=== PATIENT | male | born 1945 | race Caucasian/White ===

== ENCOUNTER 2017-06-08 07:59 | Outpatient (CLI) | payer MEDICARE, OTHER ==
[2017-06-08] VITALS (14 sets, daily range): BP systolic 114–162; BP diastolic 77–106; PULSE 44–53; TEMP 97.7
[~2017-06-08] VITALS: Ht 162.6 cm; Wt 57.7 kg
[2017-06-08] MEDS ORDERED: PRILOSEC 20MG20 MG PO (08:39)
[2017-06-08] MEDS ORDERED: ASPIRIN 81M81 MG/TA2 PO (08:40)
[2017-06-08] MEDS ORDERED: PLAVIX 75MG TAB75 MG PO (08:40)
[2017-06-08] MEDS ORDERED: FLOMAX 0.40.4 MG/CAP PO (08:44)
== END 2017-06-08 11:28 | disposition home or self-care (01) ==
LOC: COL.RAD 07:59
DX: I34.0 Nonrheumatic mitral (valve) insufficiency (principal); I77.810 Thoracic aortic ectasia; I63.443 Cerebral infarction due to embolism of bilateral cerebellar arteries
CPT/HCPCS: J2250; J3010

== ENCOUNTER 2017-07-13 11:53 | Day surgery (SDC) | payer MEDICARE, OTHER ==
[~2017-07-13] VITALS: Ht 162.6 cm; Wt 56.8 kg
[~2017-07-13 11:53] MED LIST: ASPIRIN 81M81 MG/TA2 PO; FLOMAX 0.40.4 MG/CAP PO; PLAVIX 75MG TAB75 MG PO; PRILOSEC 20MG20 MG PO
[2017-07-13 12:28] LABS: HEMATOCRIT 41.2 % (42.0-52.0); HEMOGLOBIN 13.1 g/dl (13.5-18.0); MEAN CELL VOLUME 86 fl (80.0-100.0); MEAN CORPUSCULAR HEMOGLOBIN 28 pg (27.0-31.0); MEAN CORPUSCULAR HGB CONC 32 g/dl (33.0-37.0); MEAN PLATELET VOLUME 9.6 fl (7.4-10.4); PLATELET COUNT 209 K/mm3 (130-400); RED BLOOD COUNT 4.77 M/mm3 (4.20-5.60); REDCELL DISTRIBUTION WIDTH-CV 17.2 % (11.5-14.5); WHITE BLOOD COUNT 4.4 K/mm3 (4.8-10.8)
[2017-07-13 12:33] LABS: INR 3.1 (0.8-3.0); PROTHROMBIN TIME 36.2 SECONDS (9.7-12.8)
[2017-07-13 12:48] LABS: CALCIUM 9.1 mg/dL (8.4-10.2); CREATININE, serum 0.92 mg/dL (0.66-1.25); POTASSIUM 4.2 mmol/L (3.4-5.0)
[2017-07-13 12:49] VITALS: BP 123/81; PULSE 48; TEMP 98.1
[2017-07-13] MEDS ORDERED: PROTONIX 40MG T40 MG PO (12:53)
[2017-07-13] MEDS ORDERED: BENADRYL25 M2 PO (12:54)
[2017-07-13] MEDS ORDERED: COUMADIN 5MG5 MG/TAB PO (12:54)
[2017-07-13] MEDS ORDERED: ZESTRIL2.5 MG PO (12:54)
== END 2017-07-13 14:55 | disposition home or self-care (01) ==
LOC: COL.CAR 11:53
PROVIDERS: Internal Medicine Interventional Cardiology
DX: I48.91 Unspecified atrial fibrillation (principal); I63.443 Cerebral infarction due to embolism of bilateral cerebellar arteries; I10 Essential (primary) hypertension; Q21.1 Atrial septal defect; I77.810 Thoracic aortic ectasia; M19.90 Unspecified osteoarthritis, unspecified site; K21.9 Gastro-esophageal reflux disease without esophagitis; Z79.01 Long term (current) use of anticoagulants; Z80.9 Family history of malignant neoplasm, unspecified; Z82.3 Family history of stroke
CPT/HCPCS: C1764

== ENCOUNTER 2020-03-29 19:30 | Observation (INO) | payer MEDICARE, OTHER ==
[~2020-03-29] VITALS: Ht 162.6 cm; Wt 56.8 kg
[~2020-03-29 19:30] MED LIST changes: +BENADRYL25 M2 PO; +COUMADIN 5MG5 MG/TAB PO; +PROTONIX 40MG T40 MG PO; +ZESTRIL2.5 MG PO
[2020-03-29] MEDS ORDERED: DILT PO (20:14)
[2020-03-29 20:51] LABS: HEMATOCRIT 46.2 % (42.0-52.0); HEMOGLOBIN 15.3 g/dl (13.5-18.0); MEAN CELL VOLUME 96 fl (80.0-100.0); MEAN CORPUSCULAR HEMOGLOBIN 32 pg (27.0-31.0); MEAN CORPUSCULAR HGB CONC 33 g/dl (33.0-37.0); MEAN PLATELET VOLUME 9.1 fl (7.4-10.4); PLATELET COUNT 232 K/mm3 (130-400); REDCELL DISTRIBUTION WIDTH-CV 12.4 % (11.5-14.5)
[2020-03-29 21:15] LABS: ALBUMIN 3.7 gm/dL (3.5-5.0); BILIRUBIN,TOTAL 0.5 mg/dL (0.0-1.0); CALCIUM 9.1 mg/dL (8.4-10.2); CREATININE, serum 0.88 (0.66-1.25); TOTAL PROTEIN 7.3 gm/dL (6.4-8.2)
[2020-03-29 21:38] LABS: BAND 9 % (0-10); LYMPHOCYTE 5 % (20.0-51.0); NEUTROPHILS 82 % (42.0-75.2)
[2020-03-29 21:39] LABS: PLATELET ESTIMATE NORMAL (NORMAL)
[2020-03-29 22:55] VITALS: BP 134/85; PULSE 62; TEMP 99.2
[2020-03-30 03:46] VITALS: BP 130/84; PULSE 61; TEMP 98.1
--- NOTE | 2020-03-30 04:13 | NUR ---
Patient to the floor at about 2230. Ambulates to the bathroom with unsteady gait. Complains of pain to left shoulder. PRN pain medication administered and effective. Patient has slept well throughout the night. IVF continue to RAC. Continues to be alert and oriented. No confusion noted. Uses call light appropriately. Skin tear noted to back of left elbow. Steristrip applied and optifoam covering site. Patient denies any further needs. Will continue to monitor.
[2020-03-30 06:12] LABS: BASO % 0.1 % (0.0-2.0); EOS % 0.1 % (0-4.0); GRAN # 6.7 (1.4-6.5); GRAN % 80.7 % (42.2-75.2); HEMATOCRIT 41.6 % (42.0-52.0); LYMPH # 0.8 (1.2-3.4); LYMPH % 9.3 % (20.0-51.0); MEAN CELL VOLUME 97 fl (80.0-100.0); MEAN CORPUSCULAR HEMOGLOBIN 33 pg (27.0-31.0); MEAN CORPUSCULAR HGB CONC 34 g/dl (33.0-37.0); MONO # 0.8 (0.1-0.6); MONO % 9.4 % (1.7-9.3); PLATELET COUNT 224 K/mm3 (130-400); RED BLOOD COUNT 4.31 M/mm3 (4.20-5.60); REDCELL DISTRIBUTION WIDTH-CV 12.7 % (11.5-14.5)
[2020-03-30 06:16] LABS: PROTHROMBIN TIME 22.1 SECONDS (9.7-12.8)
[2020-03-30 06:21] LABS: ALBUMIN 3.2 gm/dL (3.5-5.0); BILIRUBIN,TOTAL 0.5 mg/dL (0.0-1.0); CALCIUM 8.6 mg/dL (8.4-10.2); CREATININE, serum 0.74 (0.66-1.25); POTASSIUM 4.1 mmol/L (3.4-5.0); TOTAL PROTEIN 6.5 gm/dL (6.4-8.2)
--- NOTE | 2020-03-30 07:13 | NUR ---
Sitting up in bed with eyes open. Having pain in left shoulder and requests pain medication. Will administer as prescribed. Denies any additional needs at this time.
[2020-03-30 08:19] VITALS: BP 173/89; PULSE 68; TEMP 98.4
[2020-03-30 11:39] VITALS: BP 155/98; PULSE 64; TEMP 98.4
--- NOTE | 2020-03-30 13:18 | NUR ---
Placed left arm in sling per Ortho request. Patient sitting up in bed. Denies any additional needs at this time.
[2020-03-30] MEDS ORDERED: NORCO 325 MG-51 TAB PO (13:43)
[2020-03-30] MEDS ORDERED: SALONPAS1 EACH TP (13:44)
[2020-03-30] MEDS ORDERED: COMBIRESP IH (13:45)
--- NOTE | 2020-03-30 15:30 | NUR ---
STEPHENIE met with the patient to complete initial intake. The patient lives in [place] with his , Pearl. The patient does not use DME and is independent with ADLs. The patient's PCP is Dr. Price and patient receives medications from [facility] in . The patient does not have advanced directives in the EMR and was not interested in a DPOA-HC form. The patient plans to return home at discharge with his . There are no additional needs at this time.
--- NOTE | 2020-03-30 15:45 | NUR ---
Reviewed discharge instructions with the patient. Questions answered. Patient signs discharge documents. Discharge packet provided to the patient. Patient will notify staff when family is here to pick him up.
--- NOTE | 2020-03-30 16:44 | NUR ---
Patient calls and says that his ride is here to pick him up. Patient escorted out to POV via wheel chair.
== END 2020-03-30 16:44 | disposition home or self-care (01) ==
LOC: COL.ER 19:30 → SURG 21:24
PROVIDERS: Family Medicine; ADMIT Surgery
DX: S42.018A Nondisplaced fracture of sternal end of left clavicle, initial encounter for closed fracture (principal); S22.42XA Multiple fractures of ribs, left side, initial encounter for closed fracture; S22.019A Unspecified fracture of first thoracic vertebra, initial encounter for closed fracture; I72.8 Aneurysm of other specified arteries; I25.10 Atherosclerotic heart disease of native coronary artery without angina pectoris; I10 Essential (primary) hypertension; N40.0 Benign prostatic hyperplasia without lower urinary tract symptoms; W17.89XA Other fall from one level to another, initial encounter; Y93.9 Activity, unspecified; Y92.9 Unspecified place or not applicable; Y99.9 Unspecified external cause status; Z88.5 Allergy status to narcotic agent; Z79.82 Long term (current) use of aspirin; Z79.01 Long term (current) use of anticoagulants; Z86.73 Personal history of transient ischemic attack (TIA), and cerebral infarction without residual deficits; Z87.891 Personal history of nicotine dependence
CPT/HCPCS: G0378; J2405; J3010; J7120; Q9967

== ENCOUNTER 2021-06-12 10:09 | Emergency (ER) | payer MEDICARE, OTHER ==
[~2021-06-12] VITALS: Ht 162.6 cm; Wt 57.3 kg
[~2021-06-12 10:09] MED LIST changes: +COMBIRESP IH; +DILT PO; +NORCO 325 MG-51 TAB PO; +SALONPAS1 EACH TP
[2021-06-12 10:16] VITALS: TEMP 98.3
[2021-06-12 10:34] LABS: BASO % 0.5 % (0.0-2.0); EOS # 0.1 (0.0-0.7); EOS % 0.7 % (0-4.0); GRAN # 6.4 (1.4-6.5); GRAN % 78.3 % (42.2-75.2); HEMATOCRIT 42.5 % (42.0-52.0); HEMOGLOBIN 14.4 g/dl (13.5-18.0); LYMPH # 0.9 (1.2-3.4); LYMPH % 11.1 % (20.0-51.0); MEAN CELL VOLUME 96 fl (80.0-100.0); MEAN CORPUSCULAR HEMOGLOBIN 33 pg (27.0-31.0); MEAN CORPUSCULAR HGB CONC 34 g/dl (33.0-37.0); MONO # 0.8 (0.1-0.6); MONO % 9.2 % (1.7-9.3); PLATELET COUNT 230 K/mm3 (130-400); RED BLOOD COUNT 4.43 M/mm3 (4.20-5.60); REDCELL DISTRIBUTION WIDTH-CV 12.6 % (11.5-14.5)
[2021-06-12 10:40] LABS: INR 2.5 (0.8-3.0); PROTHROMBIN TIME 27.6 SECONDS (9.7-12.8)
[2021-06-12 10:44] LABS: ALBUMIN 3.8 gm/dL (3.5-5.0); BILIRUBIN,TOTAL 0.9 mg/dL (0.0-1.0); CALCIUM 9.2 mg/dL (8.4-10.2); CREATININE, serum 0.93 (0.66-1.25); POTASSIUM 4.3 mmol/L (3.4-5.0)
[2021-06-12] MEDS ORDERED: OXY IR5 MG PO (12:41)
[2021-06-12 12:55] VITALS: BP 181/100; PULSE 51
== END 2021-06-12 12:55 | disposition home or self-care (01) ==
LOC: COL.ER 10:09
PROVIDERS: Emergency Medicine
DX: S70.11XA Contusion of right thigh, initial encounter (principal); J44.9 Chronic obstructive pulmonary disease, unspecified; K21.9 Gastro-esophageal reflux disease without esophagitis; Z79.01 Long term (current) use of anticoagulants; Z86.73 Personal history of transient ischemic attack (TIA), and cerebral infarction without residual deficits; Z79.899 Other long term (current) drug therapy; Z79.82 Long term (current) use of aspirin; W01.198A Fall on same level from slipping, tripping and stumbling with subsequent striking against other object, initial encounter; Y99.0 Civilian activity done for income or pay
CPT/HCPCS: J3010; Q9967

== ENCOUNTER → 2022-05-22 | Outpatient (CLI) | payer MEDICARE, OTHER ==
[~2022-05-22] MED LIST changes: +OXY IR5 MG PO
[2022-05-22 10:36] LABS: CALCIUM 8.9 mg/dL (8.4-10.2); CREATININE, serum 0.91 mg/dL (0.72-1.25); POTASSIUM 3.7 mmol/L (3.5-4.5)
== END ==
LOC: COL.RAD 10:00
PROVIDERS: Internal Medicine Cardiovascular Disease
DX: I72.8 Aneurysm of other specified arteries (principal); N28.9 Disorder of kidney and ureter, unspecified; E27.8 Other specified disorders of adrenal gland
CPT/HCPCS: Q9967